=== PATIENT | female | born 1955 | race Two or more races ===

== ENCOUNTER → 2017-02-20 | Outpatient (CLI) | payer OTHER | LOC: FIMAGING 15:02 | PROVIDERS: ATTEND Internal Medicine | DX: Z12.31 Encounter for screening mammogram for malignant neoplasm of breast (principal); Z80.3 Family history of malignant neoplasm of breast | CPT/HCPCS: G0202 ==

== ENCOUNTER → 2017-04-16 | Outpatient (CLI) | payer OTHER | LOC: FIMAGING 14:54 | PROVIDERS: ATTEND Internal Medicine | DX: Z13.820 Encounter for screening for osteoporosis (principal); M85.80 Other specified disorders of bone density and structure, unspecified site; Z82.62 Family history of osteoporosis ==

== ENCOUNTER → 2017-08-14 | Outpatient (CLI) | payer OTHER | LOC: FIMAGING 07:27 | PROVIDERS: ATTEND Neurological Surgery | DX: M51.36 Other intervertebral disc degeneration, lumbar region (principal); N20.0 Calculus of kidney ==

== ENCOUNTER → 2017-08-15 | Outpatient (CLI) | payer OTHER | LOC: FIMAGING 18:46 | PROVIDERS: ATTEND Neurological Surgery | DX: M54.16 Radiculopathy, lumbar region (principal); M51.36 Other intervertebral disc degeneration, lumbar region; M51.26 Other intervertebral disc displacement, lumbar region; M51.37 Other intervertebral disc degeneration, lumbosacral region ==

== ENCOUNTER 2017-09-07 16:41 | Emergency (ER) | payer OTHER ==
[2017-09-07 16:46] VITALS: O2SAT 96
--- NOTE | 2017-09-07 16:55 | CPEKG ---
Heart Rate: 82 RR Interval: 732 P-R Interval: 148 QRSD Interval: 96 QT Interval: 384 QTC Interval: 449 P [place]: 57 QRS [place]: -20 T Wave [place]: 79 EKG Severity - ABNORMAL ECG - EKG Impression: SINUS RHYTHM EKG Impression: PROBABLE LVH WITH SECONDARY REPOL ABNRM Electronically Signed By: Sofia Nichols 07-Sep-2017 21:34:35
[2017-09-07] MEDS ORDERED: ASPIRIN 81 MG CHEWABLE TAB PO ONE (17:05)
--- NOTE | 2017-09-07 17:05 | EDPHY ---
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 She states these feel different than her previous palpitations. They have been intermittent for the past 3 weeks. She feels as though "it's a hot pad of a buzz. " She describes it as a tingling sensation. No chest pain or shortness of breath. Her symptoms have increased over the past 24 hr. The patient states that she has been under significant personal stress. She recently had a friend . She has family coming into town. She denies any change in her medication. She denies alcohol or drug use. She has had no recent extended travel. No leg pain or swelling. REVIEW OF SYSTEMS: My complete review of systems is negative except as mentioned in the HPI. Past Medical/Surgical History: Includes asthma, Sharee's thyroiditis, GERD, hypertension Past surgical history: Noncontributory Social history: The patient does not smoke. She drinks alcohol occasionally. Smoking Status: Former smoker Physical Exam: 36.9, 95, 16, 96% on room air GENERAL: Well-appearing, in no acute distress, alert. HEENT: Eyes normal to inspection, normal pharynx, no signs of dehydration. NECK: No thyromegaly, no lymphadenopathy, supple. RESPIRATORY: Clear to auscultation bilaterally, no rales, rhonchi or wheezing. CVS: Regular rate and rhythm, no rubs, murmurs, or gallops. ABDOMEN: Soft, nontender, nondistended, no organomegaly. BACK: Normal to inspection, no CVA tenderness. SKIN: Normal color, no rash, warm, dry. No pallor. EXTREMITIES: No pedal edema, no calf tenderness, no Homans sign or cords, no joint swelling. NEURO/PSYCH: Alert and oriented x3, normal mood and affect, normal motor sensory exam. No obvious cranial nerve deficit. Constitutional: Initial Vital Signs Temperature (C) 36.9 C 09/07/17 16:45 Heart Rate 95 09/07/17 16:45 Respiratory Rate 16 09/07/17 16:45 O2 Sat (%) 96 09/07/17 16:45 O2 Delivery Mode Room Air Allergies/Adverse Reactions: latex [Latex] Allergy (Severe, Verified 07/23/16 12:14) ITCHY THROAT hydrocodone Allergy (Verified 07/23/16 12:14) Itching oxycodone Allergy (Verified 07/23/16 12:14) Itching ENVIRONMENTAL Allergy (Mild, Uncoded 09/13/11 14:12) STUFFY NOSE/COUGHING/SNEEZING Home Medications: Medication Instructions Recorded [place] Thyroid 09/07/17 Propranolol HCl 09/07/17 Medical Decision Making ED Course/Re-evaluation: In the emergency department I discussed possible etiologies with the patient. I answered all her questions. IV was placed. Laboratory studies and EKG were obtained. EKG shows normal sinus rhythm, normal rate, normal axis, normal intervals. LVH with repolarization abnormality. There are no ST or T-wave abnormalities. Patient's CBC was normal. Chemistries notable for mildly elevated sodium. Her TSH is normal. Troponin is negative. I reviewed the patient's rhythm strips while in emergency department. I did not see any significant dysrhythmia while here. I discussed the results with the patient. I answered all her questions. She will follow up with her primary care physician Dr. Vázquez. She was also given follow-up information with Dr. Alex. She has seen Dr. Alex previously. She will return with worsening symptoms. She was given warnings prior to leaving. Differential Diagnosis: My differential includes but is not limited to ACS, acute PA, dysrhythmia, electrolyte abnormality, sugar abnormality, thyroid disease, anxiety, stress - Data Points Laboratory Results: Laboratory Results 09/07/17 17:04 09/07/17 17:04 09/07/17 09/07/17 17:04 17:04 WBC 6.83 10^3/uL 10^3/uL (3.80-9.50) RBC 4.99 10^6/uL 10^6/uL (4.18-5.33) Hgb 15.5 g/dL g/dL (12.6-16.3) Hct 44.5 % % (38.0-47.0) MCV 89.2 fL fL (81.5-99.8) MCH 31.1 pg pg (27.9-34.1) MCHC 34.8 g/dL g/dL (32.4-36.7) RDW 13.3 % % (11.5-15.2) Plt Count 251 10^3/uL 10^3/uL (150-400) MPV 10.2 fL fL (8.7-11.7) Neut % (Auto) 66.6 % % (39.3-74.2) Lymph % (Auto) 23.6 % % (15.0-45.0) [place] % (Auto) 6.3 % % (4.5-13.0) Eos % (Auto) 2.8 % % (0.6-7.6) Baso % (Auto) 0.4 % % (0.3-1.7) Nucleat RBC Rel Count 0.0 % % (0.0-0.2) Absolute Neuts (auto) 4.55 10^3/uL 10^3/uL (1.70-6.50) Absolute Lymphs (auto) 1.61 10^3/uL 10^3/uL (1.00-3.00) Absolute Monos (auto) 0.43 10^3/uL 10^3/uL (0.30-0.80) Absolute Eos (auto) 0.19 10^3/uL 10^3/uL (0.03-0.40) Absolute Basos (auto) 0.03 10^3/uL 10^3/uL (0.02-0.10) Absolute Nucleated RBC 0.00 10^3/uL 10^3/uL (0-0.01) Immature Gran % 0.3 % % (0.0-1.1) Immature Gran # 0.02 10^3/uL 10^3/uL (0.00-0.10) Sodium 146 mEq/L H mEq/L (134-144) Potassium 3.9 mEq/L mEq/L (3.5-5.2) Chloride 105 mEq/L mEq/L (97-110) Carbon Dioxide 25 mEq/l mEq/l (22-31) Anion Gap 16 mEq/L mEq/L (8-16) BUN 14 mg/dL mg/dL (7-23) Creatinine 1.0 mg/dL mg/dL (0.6-1.0) Estimated GFR 56 Glucose 96 mg/dL mg/dL (70-100) Calcium 10.3 mg/dL mg/dL (8.5-10.4) Troponin I < 0.012 ng/mL ng/mL (0.000-0.034) TSH 1.590 uIU/mL uIU/mL (0.465-4.680) Medications Given: Discontinued Medications Aspirin (Aspirin) 324 mg PO EDNOW ONE Stop: 09/07/17 17:06 Last Admin: 09/07/17 17:18 Dose: 324 mg Departure - Departure Disposition: Home, Routine, Self-Care Clinical Impression: Palpitations Condition: Good Instructions: Heart Palpitations (ED) Additional Instructions: Return with increasing palpitations, chest pain, shortness of breath, leg pain, leg swelling or any other concerns. Referrals: Meredith Woody MD [Primary Care Provider] - 2-3 days, call for appt. Graham Alex MD [Medical Doctor] - 2-3 days without fail
[2017-09-07 17:18] LABS: PLATELET COUNT 251 10^3/uL (150-400)
[2017-09-07 18:22] VITALS: BP 124/86; PULSE 66; RESP 18; TEMP 97.9
== END 2017-09-07 18:22 | disposition home or self-care (01) ==
DX: R00.2 Palpitations (principal); J45.909 Unspecified asthma, uncomplicated; I10 Essential (primary) hypertension; Z87.891 Personal history of nicotine dependence; Z91.040 Latex allergy status

== ENCOUNTER → 2017-10-08 | Outpatient (CLI) | payer OTHER | LOC: FIMAGING 09:18 | PROVIDERS: ATTEND Internal Medicine | DX: R05 Cough (principal) ==

== ENCOUNTER → 2018-02-25 | Outpatient (CLI) | payer OTHER | LOC: FIMAGING 09:09 | PROVIDERS: ATTEND Internal Medicine | DX: Z12.31 Encounter for screening mammogram for malignant neoplasm of breast (principal); Z80.3 Family history of malignant neoplasm of breast ==

== ENCOUNTER → 2018-07-22 | Outpatient (CLI) | payer OTHER ==
[~2018-07-22] MED LIST: IOPAMIDOL (ISOVUE-300) 100 ML BTL ONE
== END ==
LOC: FIMAGING 16:02
PROVIDERS: ATTEND Internal Medicine
DX: R10.11 Right upper quadrant pain (principal); R10.811 Right upper quadrant abdominal tenderness; K76.9 Liver disease, unspecified
CPT/HCPCS: Q9967

== ENCOUNTER → 2018-08-19 | Outpatient (CLI) | payer OTHER | LOC: FIMAGING 12:50 | PROVIDERS: ATTEND Surgery | DX: R10.11 Right upper quadrant pain (principal) | CPT/HCPCS: A9537 ==

== ENCOUNTER → 2019-03-13 | Outpatient (CLI) | payer OTHER | LOC: FIMAGING 07:43 ==